=== PATIENT | female | born 1985 | race African-American/Black ===

== ENCOUNTER 2018-06-29 01:21 | Emergency (ER) | payer MEDICAID ==
[~2018-06-29] VITALS: Ht 170.2 cm; Wt 68.2 kg
[2018-06-29 02:04] LABS: APPEARANCE,URINE CLEAR (CLEAR); BILIRUBIN,URINE NEGATIVE (NEGATIVE); GLUCOSE, URINE (UA) NEGATIVE (NEGATIVE); KETONES,URINE NEGATIVE (NEGATIVE); LEUKOCYTE ESTERASE ,URINE NEGATIVE (NEGATIVE); NITRATE,URINE NEGATIVE (NEGATIVE); OCCULT BLOOD,URINE NEGATIVE (NEGATIVE); PROTEIN,URINE NEGATIVE (NEGATIVE)
[2018-06-29 02:30] VITALS: BP 116/78
[2018-06-29] MEDS ORDERED: IBUPROFEN 800 MG TABLET PO ONE (02:30)
== END 2018-06-29 02:45 | disposition home or self-care (01) ==
LOC: EMS 01:21
DX: S90.31XA Contusion of right foot, initial encounter (principal); J45.909 Unspecified asthma, uncomplicated; F31.9 Bipolar disorder, unspecified; F12.90 Cannabis use, unspecified, uncomplicated; Z88.5 Allergy status to narcotic agent; Z88.8 Allergy status to other drugs, medicaments and biological substances; W22.8XXA Striking against or struck by other objects, initial encounter; Y93.89 Activity, other specified; Y92.89 Other specified places as the place of occurrence of the external cause; Y99.8 Other external cause status
CPT/HCPCS: 29540; 99285

== ENCOUNTER 2018-08-10 02:39 | Emergency (ER) | payer MEDICAID | END 2018-08-10 03:00 | disposition left against medical advice (07) | LOC: EMS 02:39 | DX: R25.2 Cramp and spasm (principal); Z53.21 Procedure and treatment not carried out due to patient leaving prior to being seen by health care provider ==